=== PATIENT | male | born 1980 | race Caucasian/White ===

== ENCOUNTER 2021-10-18 13:19 | Emergency (ER) | payer MEDICAID, SELFPAY ==
[2021-10-18 13:25] VITALS: BP 117/74; PULSE 91; RESP 16; TEMP 36.7; O2SAT 98
--- NOTE | 2021-10-18 13:25 | ED.GENADUL_ITS ---
Discharge Plan Discharge Details Chief Complaint: Orthopedic Primary Care Provider: Analisa Up ED Provider: Jami Tripathi Home Meds and New Rx's Prescriptions: No Action hydrocodone-acetaminophen 5-325 mg tablet 2 - 3 tab PO DAILY PRN0RF Label Comments: TAKE 2-3 TABLET BY MOUTH ONCE A DAY DIRECTED nortriptyline 10 mg capsule 10 mg PO HS 0RF Label Comments: TAKE 1-5 CAPSULES BY MOUTH AT BEDTIME HPI General Date/Time Provider Initiated Documentation: 10/18/21 13:20 . Related Data Home Medications Medication Instructions Recorded Confirmed hydrocodone 5 mg-acetaminophen 325 2 - 3 tab PO DAILY PRN 10/18/21 10/18/21 mg tablet nortriptyline 10 mg capsule 10 mg PO HS 10/18/21 10/18/21 Allergies Allergy/AdvReac Type Severity Reaction Status Date / Time No Known Allergies Allergy Unverified 10/18/21 13:31 PFSH Social History Smoking/Tobacco Use Status: Current every day Tobacco Type: cigarettes Smoking risk assessment performed?: Yes Drug use: Occasionally Substance use type: marijuana Do you feel safe at home: Yes Do you feel safe in your relationship?: Yes
[2021-10-18] MEDS: Ketorolac 15 MG/ML VIAL IM (13:46)
--- NOTE | 2021-10-18 13:53 | ED.GENADUL_ITS ---
Discharge Plan Disposition Patient Disposition: HOME Condition: Stable Discharge Details Clinical Impression: Hip pain, right Primary Care Provider: Analisa Up ED Provider: Jami Tripathi Home Meds and New Rx's Prescriptions: Continued hydrocodone-acetaminophen 5-325 mg tablet 2 - 3 tab PO DAILY PRN0RF Label Comments: TAKE 2-3 TABLET BY MOUTH ONCE A DAY DIRECTED nortriptyline 10 mg capsule 10 mg PO HS 0RF Label Comments: TAKE 1-5 CAPSULES BY MOUTH AT BEDTIME Discharge Instructions Instructions: Leg Pain (ED) Additional Instructions: Take ibuprofen 600 mg every 8 hours with food as needed for pain\ Tylenol 650 mg every 4-6 hours as needed for pain, do not exceed 4 g of Tylenol a day Allowing your hip time to rest will help alleviate some of your pain Please follow-up with your orthopedist and primary care physician and let them know that your pain is worsening and return earlier should you have new or worsening complaints HPI General Date/Time Provider Initiated Documentation: 10/18/21 13:20 . HPI Narrative: This 41-year-old gentleman with chronic hip pain presents with acute exacerbation of his chronic hip pain. He denies any change in the discomfort except that is more persistent and gradually worsening. He reportedly has seen orthopedics in the past and state he is not yet a candidate for hip replacement. He states that his doctor is prescribed hydrocodone for his discomfort but he ran out of this prescription reportedly. He denies any fever or chills. He denies any abdominal pain or changes in urination. He states the pain is exacerbated with movement and position change. He denies any new falls or injuries. Related Data Home Medications Medication Instructions Recorded Confirmed hydrocodone 5 mg-acetaminophen 325 2 - 3 tab PO DAILY PRN 10/18/21 10/18/21 mg tablet nortriptyline 10 mg capsule 10 mg PO HS 10/18/21 10/18/21 Allergies Allergy/AdvReac Type Severity Reaction Status Date / Time No Known Allergies Allergy Unverified 10/18/21 13:31 General Stated Complaint: Orthopedic MAGDALENA: 4 Review of Systems Narrative: Review of systems obtained x3 and negative aside from medication HPI PFSH All Active Problems (Updated 10/18/21 @ 13:57 by CULLEN Lee) Hip pain, right (Acute) Social History Smoking/Tobacco Use Status: Current every day Tobacco Type: cigarettes Smoking risk assessment performed?: Yes Drug use: Occasionally Substance use type: marijuana Do you feel safe at home: Yes Do you feel safe in your relationship?: Yes Exam Const General: cooperative GI Other: Nontender abdominal exam No abdominal bruit or pulsatile mass Back/Spine/Pelvis Back: no CVA tenderness and CVA tenderness Other: Right hip tenderness with palpation, no overlying erythema, no obvious swelling, no midline lumbar spine pain, no gluteal pain Neurovascularly intact Neuro Other: Strength and sensation intact distally Extrem Other: Distal pulses intact Course Vital Signs Vital signs: Vital Signs Temperature 36.7 C 10/18/21 13:25 Pulse 91 H 10/18/21 13:25 Respiratory Rate 16 10/18/21 13:25 Blood Pressure 117/74 10/18/21 13:25 Pulse Oximetry 98 10/18/21 13:25 Temperature 36.7 C 10/18/21 13:25 Temperature Source Temporal Artery Scan 10/18/21 13:25 Pulse 91 H 10/18/21 13:25 Respiratory Rate 16 10/18/21 13:25 Respiratory Effort Non-Labored 10/18/21 13:29 Blood Pressure 117/74 10/18/21 13:25 Blood Pressure Position Supine 10/18/21 13:25 Pulse Oximetry 98 10/18/21 13:25 Oxygen Delivery Method Room Air 10/18/21 13:25 Oxygen Flow Rate 0 10/18/21 13:25 Pain Level 8 10/18/21 13:48 PAWSS Have you Been Recently Intoxicated or Drunk Within the Last 30 days?: No Have you Ever Experienced Previous Episodes of Alcohol Withdrawal?: No Have you ever Experienced Withdrawal Seizures?: No Have you ever Experienced Delirium Tremens(DT)s?: No Have you ever undergone Alcohol Rehabilitation Treatment (i.e, inpt ot outpatient treatment programs)?: No Have you ever Experienced Blackouts?: No Have you ever Combined Alcohol with other Downers within the last 90 days?: No Have you ever Combined Alcohol with any other Substance of Abuse during the last 90 days?: No Positive Blood Alcohol level on Presentation? [PCS.BAL]: No Evidence of Increased Autonomic Activity (i.e. HR>120, tremor, sweating, agitation, nausea)?: No Result: 0
== END 2021-10-18 14:02 | disposition home or self-care (01) ==
PROVIDERS: Emergency Provider Physician Assistant; PCP Physician Assistant Medical
DX: M25.551 Pain in right hip (principal); G89.29 Other chronic pain
CPT/HCPCS: 96372; 99284; 99283; J1885

== ENCOUNTER 2023-05-05 10:43 | Emergency (ER) | payer MEDICAID, SELFPAY ==
[2023-05-05] VITALS (17 sets, daily range): BP systolic 119–140; BP diastolic 69–81; PULSE 79–99; RESP 8–27; O2SAT 84–100
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
[2023-05-05 11:06] LABS: Abs Immature Grans 0.61 10^3/uL (0.0-0.06); Absolute Basophil Count 0.08 10^3/uL (0.0-0.2); Absolute Eosinophil Count 0.05 10^3/uL (0.0-0.7); Absolute Lymphocyte Count 1.93 10^3/uL (1.2-3.4); Basophils % 0.5; Eosinophils % 0.3; HCT 41.4 % (40.0-50.0); HGB 13.8 g/dL (13.5-17.5); Immature Grans % 3.9; Lymphocytes % 12.4; MCH 31.3 pg (27.0-33.0); MCHC 33.3 % (32.0-36.0); MCV 94 fL (80-95); Monocytes % 5.8; Neutrophils % 77.1; Platelet Count 400 10^3/uL (130-400); RBC 4.41 10^6/uL (4.36-5.78); RDW-SD 44.9 fL; WBC 15.56 10^3/uL (4.4-10.8)
[2023-05-05] MEDS: HYDROmorphone 2 MG/ML SYR 1 MG IVP ×2 (11:15→12:49)
[2023-05-05] MEDS: Omnipaque 350 MG/ML 100 ML BTL IJ (11:18)
[2023-05-05] MEDS: Normal Saline - Diluent 50 ML VIAL IJ (11:19)
[2023-05-05] MEDS: Normal Saline Flush 10 ML SYR IVP (11:20)
[2023-05-05 11:22] LABS: ALT 61 U/L (16-63); AST 61 U/L (15-37); Albumin 3.6 g/dL (3.4-5.0); Alkaline Phosphatase 84 U/L (46-116); Anion Gap 7.8 mmol/L (3-11); BUN 16 mg/dL (7-18); Bilirubin, Total 0.4 mg/dL (0.2-1.0); CO2 28.2 mmol/L (21.0-32.0); Calcium 8.5 mg/dL (8.5-10.1); Chloride 102 mmol/L (98-107); Estimated GFR 95.77 (mL/min/1.73m2); Glucose 111 mg/dL (74-106); Potassium 3.9 mmol/L (3.5-5.1); Sodium 138 mmol/L (136-145); Total Protein 6.9 g/dL (6.4-8.2)
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
[2023-05-05 11:51] LABS: Diff Comment Agrees w/ Instrument; RBC Morphology Normal
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
--- NOTE | 2023-05-05 15:57 | NUR.NOTE ---
1309 Transfer to [facility] with patient and [employer] Nate Cat via [place]. Patient medicated with Dilaudid 1mg IV prior to departure. States pain 6/10 denies need for pain med at this time. IV RT AC patent IV left FA patent. Voided 650cc urine prior to departure. Vitals as follows: 1310 127/74 HR 97 RR 16 O2 sat 97% RA 1320 127/66 HR 83 RR 20 Sat 97% RA A&O x 3 Pain 4/10 1335 117/75 HR 81 RR 18 Sat 96% RA Denies need for pain medication denies nausea 1345 HR 90 RR 20 Sat 99% RA Pain 6/10 denies pain medications Good PMS lower extremities 1354 Pain 8/10 having back spasms medicated as ordered Fentanyl 50mcg IV. 130/75 HR 96 RR 20 Sat 100% 1400 HR 73 RR 14 Sat 92% RA resting with eyes closed, arouses easily to voice 1410 139/73 HR 85 RR 16 Sat 96% RA low back pain, refuses medication 1420 arrival to [facility]. Report given to Giovanny Parker RN in the ED.
== END 2023-05-05 13:09 | disposition short-term general hospital (02) ==
PROVIDERS: Emergency Provider Student in an Organized Health Care Education/Training Program; PCP Family Medicine
DX: S32.10XA Unspecified fracture of sacrum, initial encounter for closed fracture (principal); S32.511A Fracture of superior rim of right pubis, initial encounter for closed fracture; S32.591A Other specified fracture of right pubis, initial encounter for closed fracture; F17.210 Nicotine dependence, cigarettes, uncomplicated; V28.49XA Other motorcycle driver injured in noncollision transport accident in traffic accident, initial encounter
CPT/HCPCS: 73552; 74177; 80053; 86850; 86900; 86901; 96365; 96375; 99285; 70450; 71260; 72125; 85025; J0131; J1170; J3490

== ENCOUNTER 2023-08-14 19:42 | Emergency (ER) | payer MEDICAID, SELFPAY ==
[2023-08-14 19:50] VITALS: BP 147/76; PULSE 89; RESP 16; TEMP 36.5; O2SAT 98
[2023-08-14 19:55] VITALS: TEMP 36.4
[2023-08-14] MEDS: Acetaminophen 500 MG TAB 1000 MG PO (20:18)
[2023-08-14] MEDS: Lidocaine 5% Patch 1 PATCH TP (20:19)
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
== END 2023-08-14 20:26 | disposition home or self-care (01) ==
PROVIDERS: Emergency Provider Emergency Medicine; PCP Family Medicine
DX: M54.50 Low back pain, unspecified (principal); F17.200 Nicotine dependence, unspecified, uncomplicated
CPT/HCPCS: 99283